=== PATIENT | male | born 1965 | race Caucasian/White ===

== ENCOUNTER 2023-01-30 15:28 | Emergency (ER) | payer BC, OTHER ==
[2023-01-30] MEDS ORDERED: Sodium Chloride 0.9% 2.5 ML Syringe FLUSH PRN (15:36)
[2023-01-30] MEDS ORDERED: Sodium Chloride 0.9% 10 ML Syringe FLUSH PRN (15:36)
[2023-01-30 15:46] LABS: BASOPHILS PERCENT AUTO 0.3 % (0.0-1.5); EOSINOPHILS ABSOLUTE AUTO 0.1 K/uL (0.0-0.7); EOSINOPHILS PERCENT AUTO 0.5 % (0.0-7.0); HEMATOCRIT 41.7 % (38.0-50.0); HEMOGLOBIN 14.3 g/dL (13.0-17.0); LYMPHOCYTES ABSOLUTE AUTO 1.3 K/uL (0.6-2.4); LYMPHOCYTES PERCENT AUTO 12.3 % (16.0-40.0); MEAN CORPUSCULAR HEMOGLOBIN 32.4 pg (27.0-32.0); MEAN CORPUSCULAR HGB CONC 34.3 g/dL (31.0-37.0); MEAN CORPUSCULAR VOLUME 94.6 fL (80.0-98.0); MONOCYTES ABSOLUTE AUTO 0.8 K/uL (0.0-0.8); MONOCYTES PERCENT AUTO 8.2 % (0.0-15.0); NEUTROPHILS PERCENT AUTO 78.7 % (48.0-80.0); NRBC ABSOLUTE 0 K/uL; PLATELET COUNT,PLT 191 K/uL (150-400); RED BLOOD CELL COUNT 4.41 M/uL (4.50-5.90); WHITE BLOOD CELL COUNT,WBC 10.19 K/uL (4.0-11.0)
[2023-01-30 16:06] LABS: A/G RATIO 0.9 (0.9-1.6); ALBUMIN 3.6 g/dL (3.4-5.0); BILIRUBIN TOTAL 0.6 mg/dL (0.2-1.0); CALCIUM 8.4 mg/dL (8.5-10.1); CARBON DIOXIDE,CO2 22.2 mmol/L (21.0-32.0); CREATININE 0.7 mg/dL (0.8-1.3); EST CRCL DRUG DOSING (CG) 121.67 mL/min; POTASSIUM,K 3.1 mmol/L (3.5-5.1); PROTEIN TOTAL,TP 7.7 g/dL (6.4-8.2)
[2023-01-30 16:10] LABS: MAGNESIUM 1.4 mg/dL (1.8-2.4)
[2023-01-30] MEDS ORDERED: Potassium Chloride 20 MEQ Tab.ER PO STA (16:22)
[2023-01-30] MEDS ORDERED: Magnesium Sulfate/Water 4 GM in Premix Bag 1 BAG IV STA (16:22)
[2023-01-30] MEDS ORDERED: Iopamidol 755 Mg/ML 100 ML Bottle IVPUSH ONE (16:47)
[2023-01-30] MEDS ORDERED: Metoprolol Tartrate 5 MG/5 ML SDV IVPUSH STA ×2 (17:07→17:59)
[2023-01-30 18:08] VITALS: BP 119/84; PULSE 98
[2023-01-30] MEDS ORDERED: Heparin Sodium/0.45% NaCl 500 ML IV STA (18:12)
[2023-01-30] MEDS ORDERED: Heparin Sodium 5,000 Units/ML Vial IVPUSH STA (18:12)
== END 2023-01-30 22:08 ==
LOC: MW.ED 15:28
DX: I26.09 Other pulmonary embolism with acute cor pulmonale (principal); E83.42 Hypomagnesemia; E87.6 Hypokalemia; R91.8 Other nonspecific abnormal finding of lung field; I10 Essential (primary) hypertension; Z87.891 Personal history of nicotine dependence; Z79.899 Other long term (current) drug therapy; Z20.822 Contact with and (suspected) exposure to COVID-19
CPT/HCPCS: 36415; 71275; 80053; 83735; 83880; 84484; 85025; 85730; 87635; 93005; 96365; 96366; 96367; 96375; 99285; A9270; J1644; J3475; J3490; Q9967; 93010; U0002